=== PATIENT | female | born 1945 | race Two or more races ===

== ENCOUNTER 2017-12-06 13:58 | Outpatient (CLI) | payer OTHER | END 2017-12-06 14:16 | disposition home or self-care (01) | LOC: MAMO-SONO 13:58 | DX: Z12.31 Encounter for screening mammogram for malignant neoplasm of breast (principal); Z87.898 Personal history of other specified conditions; R92.2 Inconclusive mammogram; N64.51 Induration of breast; N83.00 Follicular cyst of ovary, unspecified side; N95.1 Menopausal and female climacteric states ==

== ENCOUNTER 2019-01-23 09:46 | Outpatient (CLI) | payer OTHER | END 2019-01-23 11:07 | disposition home or self-care (01) | LOC: MAMO-SONO 09:46 | DX: Z12.31 Encounter for screening mammogram for malignant neoplasm of breast (principal); Z87.898 Personal history of other specified conditions; N64.51 Induration of breast ==

== ENCOUNTER 2019-01-31 10:20 | Outpatient (CLI) | payer OTHER | END 2019-01-31 10:31 | disposition home or self-care (01) | LOC: NUCLEAR 10:20 | DX: M81.0 Age-related osteoporosis without current pathological fracture (principal) ==

== ENCOUNTER 2020-01-10 10:37 | Outpatient (CLI) | payer OTHER | END 2020-01-10 10:39 | disposition home or self-care (01) | LOC: RAD 10:37 | PROVIDERS: ATTEND Ophthalmology | DX: R07.89 Other chest pain (principal); Z98.41 Cataract extraction status, right eye ==

== ENCOUNTER 2020-12-30 14:31 | Outpatient (CLI) | payer OTHER | END 2020-12-30 14:36 | disposition home or self-care (01) | LOC: MAMO-SONO 14:31 | DX: D25.1 Intramural leiomyoma of uterus (principal); N64.89 Other specified disorders of breast; Z12.31 Encounter for screening mammogram for malignant neoplasm of breast; N95.1 Menopausal and female climacteric states ==

== ENCOUNTER 2021-02-02 13:54 | Outpatient (CLI) | payer OTHER | END 2021-02-02 13:55 | disposition home or self-care (01) | LOC: NUCLEAR 13:54 | DX: M81.0 Age-related osteoporosis without current pathological fracture (principal) ==

== ENCOUNTER 2022-10-24 00:14 | Emergency (ER) | payer OTHER ==
[~2022-10-24] VITALS: Ht 160 cm; Wt 60.8 kg
[2022-10-24] MEDS ORDERED: LOSARTAN POTASS50 MG PO (00:28)
[2022-10-24] MEDS ORDERED: AMLODIPINE BESYL5 MG PO (00:28)
[2022-10-24] MEDS ORDERED: SIMVASTATIN40 MG PO (00:29)
[2022-10-24] MEDS ORDERED: CEPHALEXIN500 MG PO (03:35)
== END 2022-10-24 03:42 ==
LOC: ER 00:14
DX: S01.02XA Laceration with foreign body of scalp, initial encounter (principal); W01.0XXA Fall on same level from slipping, tripping and stumbling without subsequent striking against object, initial encounter; Y93.89 Activity, other specified; Y92.010 Kitchen of single-family (private) house as the place of occurrence of the external cause; I10 Essential (primary) hypertension

== ENCOUNTER 2023-05-24 11:32 | Emergency (ER) | payer OTHER ==
[~2023-05-24] VITALS: Ht 160 cm; Wt 59.0 kg
[~2023-05-24 11:32] MED LIST: AMLODIPINE BESYL5 MG PO; CEPHALEXIN500 MG PO; LOSARTAN POTASS50 MG PO; SIMVASTATIN40 MG PO
[2023-05-24] MEDS ORDERED: KETOROLAC TROMETHAMINE 60 MG VIAL IM STA (14:08)
[2023-05-24 14:46] LABS: HEMATOCRIT 37.3 % (36.0-45.00); HEMOGLOBIN 12.6 g/dL (12.0-15.00); MEAN CELL VOLUME 85.9 fL (80.00-100.00); MEAN CORPUSCULAR HEMOGLOBIN 29.1 pg (27.00-32.0); MEAN CORPUSCULAR HGB CONC 33.9 g/dl (32.0-36.0); PLATELET COUNT 213 K/uL (150-450); RED BLOOD COUNT 4.34 M/uL (4.00-6.00)
[2023-05-24 15:02] LABS: CALCIUM 8.9 mg/dL (8.5-10.1); CREATININE SERUM 0.67 mg/dL (0.55-1.02); GFR 85.8; POTASSIUM 3.62 mEq/L (3.5-5.1)
[2023-05-24] MEDS ORDERED: TUSNEL LIQUID178 ML PO (19:30)
== END 2023-05-24 20:58 | disposition home or self-care (01) ==
LOC: ER 11:32
PROVIDERS: General Practice
DX: S00.83XA Contusion of other part of head, initial encounter (principal); W18.39XA Other fall on same level, initial encounter; Y93.89 Activity, other specified; Y92.89 Other specified places as the place of occurrence of the external cause; S29.8XXA Other specified injuries of thorax, initial encounter; S89.82XA Other specified injuries of left lower leg, initial encounter; S89.81XA Other specified injuries of right lower leg, initial encounter
CPT/HCPCS: 36415; 70450; 72040; 72070; 72100; 72170; 73502; 73560; 96372; 99284; J1885